=== PATIENT | male | born 1950 | race Caucasian/White ===

== ENCOUNTER 2019-09-10 16:36 | Emergency (ER) | payer MEDICARE ==
[2019-09-10 17:17] LABS: #Basophils 0.1 thou/uL (0.0-0.2); #Eosinphils 0.3 thou/uL (0.0-0.7); #Lymphocytes 3.1 thou/uL (1.20-3.40); #Monocytes 0.6 thou/uL (0.11-0.59); #Neutrophils 4.5 thou/uL (1.40-6.50); %Basophils 0.7 % (0.0-1.0); %Eosinophils 3.1 % (0.0-10.0); %Lymphocytes 36.7 % (21.0-51.0); %Monocytes 6.5 % (0.0-10.0); Hemoglobin 15.2 g/dL (14.0-18.0); Mean Corpuscular HGB CONC 34.7 g/dL (32.0-36.0); Mean Corpuscular Hemoglobin 32.2 pg (27.0-31.0); Mean Corpuscular Volume 92.9 fL (78.0-98.0); Platelet Count 225 thou/uL (130-400); RBC Distribution Width 11.2 % (11.5-14.5); White Blood Cell (WBC) Count 8.5 thou/uL (4.8-10.8)
[2019-09-10 17:35] LABS: ALT (SGPT) 11 U/L (8-55); AST (SGOT) 16 U/L (5-34); Albumin 4.5 g/dL (3.4-4.8); Alkaline Phosphatase 84 U/L (40-110); Anion Gap 13 mmol/L (10-20); BUN (Urea Nitrogen) 24 mg/dL (8.4-25.7); Bilirubin, Total 0.3 mg/dL (0.2-1.2); Calc. Creatinine Clearance 0 mL/min (70-130); Calcium 9.6 mg/dL (7.8-10.44); Carbon Dioxide 26 mmol/L (23-31); Chloride 105 mmol/L (98-107); Estimated GFR-MDRD 58; Globulin 2.6 g/dL (2.4-3.5); Glucose 102 mg/dL (80-115); Potassium 3.9 mmol/L (3.5-5.1); Protein, Total 7.1 g/dL (5.8-8.1); Sodium 140 mmol/L (136-145)
[2019-09-10] MEDS ORDERED: Ondansetron PF 4 MG/2 ML Vial ONE (17:44)
[2019-09-10] MEDS ORDERED: Morphine 4 MG/ML VIAL ONE ×2 (17:44→18:48)
[2019-09-10 18:14] LABS: Bacteria/HPF None Seen HPF (None Seen); Bilirubin Negative (Negative); Blood, Urine 1+ (Negative); Clarity Clear (Clear); Glucose, Urine (Dipstick) Normal (Negative); Leukocyte Negative Leu/uL (Negative); Nitrite Negative (Negative); Protein, Urine (Dipstick) Negative (Neg-Trace); Squamous Epithelial None Seen HPF (0-3); Urobilinogen Normal mg/dL (Less than 2); WBC/HPF 0-3 HPF (0-3)
--- NOTE | 2019-09-10 18:15 | CT ---
CT ABDOMEN NONCONTRAST CT PELVIS NONCONTRAST: (Urolithiasis protocol) DATE: 09/10/2019 HISTORY: 69-year-old male with right groin pain COMPARISON: None TECHNIQUE: IV injection of iodinated contrast media: None Oral contrast media: None FINDINGS: Other than for urolithiasis, the lack of IV and oral contrast limits the evaluation. 3 x 3 x 2 mm calculus at right UVJ. Mild right hydroureteronephrosis. Mild fat stranding representing edema at right renal hilum. Large number of small calculi throughout bilateral renal upper, mid, and lower pole calyces, ranging from 1 to 3 mm in size each. Normal appendix. Within the limitations of noncontrast scan, no major pathology identified involving pancreas, adrenal s, spleen, liver. Enlarged prostate gland. Dilated veins around seminal vesicles bilaterally. No signs of colonic diverticulitis, ascites, small bowel dilation, or pneumoperitoneum. Calcified tiny gallstones within contracted gallbladder. IMPRESSION: 1. Positive for mild right-sided obstructive uropathy: 3 mm calculus at right ureterovesical junction causing mild right hydroureteronephrosis. 2. Bilateral nephrolithiasis: Large number of small and tiny bilateral renal calculi. 3. Cholelithiasis.
[2019-09-10] MEDS ORDERED: Ketorolac Tromethamine 30 MG/ML VIAL ONE (18:48)
== END 2019-09-10 19:38 | disposition home or self-care (01) ==
LOC: ERS 16:36
DX: N13.2 Hydronephrosis with renal and ureteral calculous obstruction (principal); E78.5 Hyperlipidemia, unspecified; E78.00 Pure hypercholesterolemia, unspecified; I10 Essential (primary) hypertension; Z79.82 Long term (current) use of aspirin; Z79.899 Other long term (current) drug therapy
CPT/HCPCS: 74176; 80053; 81003; 81015; 83690; 85025; 87086; 96361; 96374; 96375; 96376; J1885; J2270; J2405

== ENCOUNTER 2020-04-07 13:53 | Inpatient (IN) | payer MEDICARE, OTHER ==
--- NOTE | 2020-04-07 14:22 | RAD ---
EXAM: Single view of the chest HISTORY: Chest pain COMPARISON: None FINDINGS: Single view of the chest shows a normal sized cardiomediastinal silhouette. There is no pam dence of consolidation, mass, or pleural effusion. No acute osseous abnormality. IMPRESSION: No evidence of acute cardiopulmonary disease
[2020-04-07 14:44] LABS: #Eosinphils 0.1 thou/uL (0.0-0.7); #Lymphocytes 1.3 thou/uL (1.20-3.40); #Monocytes 0.6 thou/uL (0.11-0.59); #Neutrophils 8.2 thou/uL (1.40-6.50); %Basophils 0.4 % (0.0-1.0); %Eosinophils 1.2 % (0.0-10.0); %Lymphocytes 12.9 % (21.0-51.0); %Monocytes 5.6 % (0.0-10.0); %Neutrophils 79.9 % (42.0-75.0); Mean Corpuscular HGB CONC 33.5 g/dL (32.0-36.0); Mean Corpuscular Hemoglobin 31.5 pg (27.0-31.0); Mean Platelet Volume 8.6 fL (7.4-10.4); Platelet Count 162 thou/uL (130-400); RBC Distribution Width 11.7 % (11.5-14.5); Red Blood Cell (RBC) Count 4.75 mill/uL (4.70-6.10); White Blood Cell (WBC) Count 10.3 thou/uL (4.8-10.8)
[2020-04-07 14:59] LABS: ALT (SGPT) 10 U/L (8-55); AST (SGOT) 15 U/L (5-34); Albumin 4.2 g/dL (3.4-4.8); Alkaline Phosphatase 74 U/L (40-110); Anion Gap 10 mmol/L (10-20); BUN (Urea Nitrogen) 23 mg/dL (8.4-25.7); Bilirubin, Total 0.6 mg/dL (0.2-1.2); Calc. Creatinine Clearance 0 mL/min (70-130); Calcium 9.2 mg/dL (7.8-10.44); Carbon Dioxide 28 mmol/L (23-31); Chloride 105 mmol/L (98-107); Estimated GFR-MDRD 75; Globulin 2.5 g/dL (2.4-3.5); Glucose 88 mg/dL (80-115); Potassium 4.2 mmol/L (3.5-5.1); Protein, Total 6.7 g/dL (5.8-8.1); Sodium 139 mmol/L (136-145)
--- NOTE | 2020-04-07 15:11 | CT ---
CT HEAD WITHOUT IV CONTRAST COMPARISON: None HISTORY: Headache and right leg numbness which started a week ago. History of fall and hit head on January 20 o f this year. TECHNIQUE: Axial CT imaging at 5 mm intervals from vertex through skull base without contrast FINDINGS: There is a large mixed density left subdural collection which extends from the level of the anterior inferior left frontal lobe to the vertex. Greatest transverse dimension is approximately 2.8 cm as measured above the level of the lateral ventricles. Findings are most compatible with a large left doss bdural hemorrhage. There is sulcal effacement involving the left cerebral hemisphere. There is effacement of the body of the left lateral ventricle and shift of the midline structures to the right measuring approximately 1.6 cm. There is no evidence of an acute cortical infarction. Skull base has a normal CT appearance. Minimal mucosal thickening is seen in a few ethmoidal air cells. The mastoid air cells are clear. There is a nondisplaced fracture involving the lateral left parietal bone which extends inferiorly to involve the more superior aspect of the squamosal portion of the left temporal bone. No overlying soft tissue swelling is appreciated. IMPRESSION: 1. Large mixed density left subdural hematoma with resultant sulcal effacement and mass effect includ ing shift of the midline structures to the right measuring 1.6 cm. 2. Nondisplaced fracture involving the left parietal bone extending into the squamosal portion of the left temporal bone. 3. Above findings were discussed with Brian Kim, nurse practitioner in the emergency department on 04/07/2020 at 1504 hours.
[2020-04-07] MEDS ORDERED: diphenhydrAMINE 50 MG/ML VIAL ONE (15:29)
[2020-04-07] MEDS ORDERED: Metoclopramide HCl 10 MG/2 ML VIAL ONE (15:29)
--- NOTE | 2020-04-07 15:46 | RAD ---
Exam: Lumbar spine 2 views HISTORY: Right leg numbness FINDINGS: 5 lumbar type vertebra. Lumbar spine vertebral body height is maintained. No fracture. Mild loss of disc space height and osteophyte formation at L2-L3 and L3-L4. No spondylolisthesis or spondylolysis. Visualized sacrum and bony pelvis are intact IMPRESSION: Mild degenerative changes. MRI if clinically warranted.
[2020-04-07] MEDS ORDERED: Ondansetron PF 4 MG/2 ML Vial IVP PRN (15:47)
[2020-04-07] MEDS ORDERED: Acetaminophen 325 MG TAB PO PRN (15:47)
[2020-04-07] MEDS ORDERED: Labetalol HCl 100 MG/20 ML VIAL SLOW IVP PRN (15:47)
[2020-04-07] MEDS ORDERED: Morphine 2 MG/ML SYRINGE SLOW IVP PRN (15:51)
[2020-04-07 16:01] LABS: CK (CPK) 36 U/L (30-200); Lipase 10 U/L (8-78)
--- NOTE | 2020-04-07 16:27 | HP ---
HISTORY OF PRESENT ILLNESS: The patient is a 69-year-old male with history of hypertension, hyperlipidemia, valvular heart disease, who presented to the emergency room for some numbness and weakness in the right lower extremity. He reports this began gradually over the past week. He initially noticed it during his drive home from [place] where he lives 6 months out of the year. The patient does admit to a fall early January, hitting his head, but was not evaluated with intracranial imaging at that time. He does take 81 mg of aspirin daily. Noncontrast CT head was done on arrival, which is notable for a large left-sided mixed density subdural hematoma with some mass effect and left to right shift. L-spine x-rays are unremarkable. Chest x-ray is also unremarkable. PAST MEDICAL HISTORY: Hypertension, hyperlipidemia, valvular heart disease. PAST SURGICAL HISTORY: Right meniscus, hernia repair. SOCIAL HISTORY: The patient drinks socially. He does not use drugs. He lives at home with his spending 6 months out of the year in [place] and 6 months out of the year in [facility]. REVIEW OF SYSTEMS: Per HPI. PHYSICAL EXAMINATION: VITAL SIGNS: Stable. GENERAL: Awake, alert, in no acute distress. HEENT: Head, normocephalic and atraumatic. Eyes, PERRLA. Extraocular movements intact. ENT, pink moist. He has normal voice. No facial droop is appreciated. NECK: Nontender. Free active range of motion. No meningismus. No nuchal rigidity. CARDIAC: Regular rate and rhythm. PULMONARY: Symmetric chest expansion. No evidence of dyspnea. MUSCULOSKELETAL: No obvious deformities. Symmetric pulses. He has some subtle weakness in the right proximal leg. Sensation is intact to light touch. NEURO: A and O x4. GCS of 15. He has some subtle right lower extremity weakness to the proximal leg. ASSESSMENT AND PLAN: The patient has a new right lower extremity weakness and sensation changes and a large left-sided mixed density subdural hematoma found on noncontrast CT. I will admit him to the [facility] for close neuro monitoring. I will make him n.p.o. in anticipation for likely need for samson hole intervention in the near future. We will send a rapid COVID test and I will ask hospitalist team to follow along for medical management. I have discussed with Dr. Hickman, who is in agreement. Job ID: [id number] [facility]
[2020-04-07 16:29] LABS: Bilirubin Negative (Negative); Blood, Urine Negative (Negative); Clarity Clear (Clear); Glucose, Urine (Dipstick) Normal (Negative); Ketone, Urine Negative (Negative); Leukocyte Negative Leu/uL (Negative); Nitrite Negative (Negative); Protein, Urine (Dipstick) Negative (Neg-Trace); Specific Gravity, Urine 1.011 (1.002-1.036); Urobilinogen Normal mg/dL (Less than 2)
[2020-04-07 17:40] LABS: Prothrombin Time 13.3 sec (12.0-14.7)
--- NOTE | 2020-04-07 20:34 | CON ---
DATE OF CONSULTATION: 04/07/2020 REASON FOR CONSULT: Medical management. CONSULTING PHYSICIAN: Irvin Guardado MD. HISTORY AND COURSE: This is a 69-year-old male with a past medical history of hypothyroidism, hypertension, and hyperlipidemia, who presented to the ER today with a week-long history of right-sided leg weakness and right-sided arm weakness. He reports that these symptoms began approximately 1 week ago and have progressed slightly since that time. He states that he noted inability to drive, and this prompted him to come into the ER. He currently denies any change in sensation in his right side. Of note, 2 months ago, he had a syncopal episode at which time he passed out, hit the back of his head, and chipped multiple teeth. He was seen in the ER at that time, but no scans were performed on his head. Currently, he reports headaches, but denies change in his vision, nausea, vomiting, diarrhea, constipation, upset stomach, abdominal pain, and left-sided weakness. PAST MEDICAL HISTORY: Hypothyroidism, hypertension, and hyperlipidemia. SOCIAL HISTORY: Denies tobacco or drug use. Socially drinks. FAMILY HISTORY: Noncontributory. ALLERGIES: NO KNOWN DRUG ALLERGIES. REVIEW OF SYSTEMS: Per HPI. CURRENT MEDICATION: List includes; 1. Amlodipine 2.5 mg p.o. daily. 2. Losartan 50 mg p.o. daily. 3. Levothyroxine 50 mcg p.o. daily. 4. Simvastatin 40 mg p.o. at bedtime. 5. Aspirin 81 mg p.o. daily. PHYSICAL EXAMINATION: VITAL SIGNS: Blood pressure 148/71, pulse 54, respirations 21, temperature 98.6, and O2 saturation 98% on room air. Weight 72 kg. GENERAL: In no acute distress. HEENT: The patient is atraumatic and normocephalic. No lesions on his head. Moist mucous membranes. CARDIOVASCULAR: Regular rate and rhythm. No murmurs. LUNGS: Clear to auscultation bilaterally. ABDOMEN: Soft and nontender. Bowel sounds are present. EXTREMITIES: No edema. Pulses are present. NEUROLOGIC: Cranial nerves 2 through 12 are grossly intact. Cerebellar testing of the upper and lower right extremities are sluggish compared to the left. Strength in the upper extremity on the right is approximately 4/5 and on the left is 5/5. Extremity strength on the lower right extremity is 4/5 and 5/5 on the left. Hence exam is negative. LABORATORY DATA: WBC 10.3, hemoglobin 15.0, hematocrit 44.6, and platelets 162. PT 13.3, INR 1.0, and APTT 40.0. Sodium 139, potassium 4.2, chloride 105, bicarb 28, BUN 23, creatinine 0.99, glucose 88, AST 15, ALT 10, albumin 4.2, and troponin less than 0.01. CPK 36 and lipase 10. UA is grossly negative. IMAGING DATA: 1. Lumbar spine 2 views shows mild degenerative changes. CT of the brain without contrast shows large mixed density left subdural hematoma with resultant sulci effacement and mass effect including shift of the midline sutures to the right measuring 1.6 cm, nondisplaced fracture involving the left parietal bone extending to the squamosal portion of the temporal bone. 2. Chest x-ray, portable, shows no acute cardiopulmonary disease. ASSESSMENT AND PLAN: 1. Subdural hematoma. The patient will be moved to the [facility] for neuro checks. Neurosurgery is admitting and managing this problem. The patient will remain n.p.o. pending possible samson hole. 2. Hypertension. We will continue the patient's home medications of amlodipine and losartan, labetalol p.r.n. on board for systolic greater than 160. 3. Hypothyroidism. Continue levothyroxine, and we will assess TSH. 4. Hyperlipidemia. Continue atorvastatin. We will hold his aspirin for now. 5. Fluids NS 100 mL/h until the patient tolerate p.o. 6. Prophylaxis. None. 7. Family: at bedside, and I discussed the plan with her. 8. Disposition: We will discharge in 2 to 3 days pending Neurosurgery recommendations. The patient will likely need physical therapy going forward. 9. PCP: The patient plans to follow up this coming with Dr. Esparza. Job ID: [id number]
[2020-04-07] MEDS ORDERED: Simvastatin 40 MG TAB PO SCH (21:00)
[2020-04-07] MEDS: Simvastatin 20 MG TAB PO SCH (21:26)
[2020-04-07] MEDS: Sodium Chloride 0.9% 1,000 ML IV SCH (21:27)
[2020-04-07] MEDS ORDERED: Morphine 2 MG/ML VIAL SLOW IVP PRN (22:30)
[2020-04-07 23:41] VITALS: BMI 20.8
[2020-04-08] MEDS: Sodium Chloride 0.9% 1,000 ML IV SCH (04:13)
--- NOTE | 2020-04-08 06:14 | PDOC.FM ---
- Subjective Subjective: Pt is doing well after samson hole procedure. He has no complaints. He is tolerating PO intake. Is unsure if his deficits are unchanged. He has no questions or concerns. - Objective Vital Signs & Weight: Vital Signs (12 hours) Pulse Ox 04/07/20 23:46 97 Weight Weight 71.668 kg Most Recent Monitor Data Heart Rate from ECG 54 NIBP 120/62 NIBP BP-Mean 81 Respiration from ECG 16 SpO2 99 I&O: 04/06/20 04/07/20 04/08/20 06:59 06:59 06:59 Output Total 400 Balance -400 Result Diagrams: 04/07/20 14:27 04/07/20 14:27 Phys Exam - Physical Examination Constitutional: NAD HEENT: PERRLA, moist MMs Neck: no JVD, full ROM Respiratory: no wheezing, clear to auscultation bilateral Cardiovascular: RRR, no significant murmur Gastrointestinal: soft, non-tender, positive bowel sounds Musculoskeletal: no edema, pulses present Neurological: moves all 4 limbs Psychiatric: normal affect, A&O x 3 Skin: no rash, cap refill <2 seconds Dx/Plan (1) Subdural hematoma Code(s): S06.5X9A - TRAUM SUBDR HEM W LOC OF UNSP DURATION, INIT Status: Acute (2) Hypertension Code(s): I10 - ESSENTIAL (PRIMARY) HYPERTENSION Status: Acute (3) Hyperlipidemia Code(s): E78.5 - HYPERLIPIDEMIA, UNSPECIFIED Status: Acute - Plan Plan: Pt is a 69 yo male here for a subdural hematoma with midline shift: # Subdural Hematoma - management per neurosurgery - BP < 160 - continue home BP meds, prn labetolol - neuro checks - pt is in recovery after samson hole # HTN - continued home amlodipine, losartan - prn labetolol # HLD - continue home medications - hold asa # Hypothyroidism - continue home medications # Will cancel pt's appt for 04/[address] Esparza Diet: NPO per neurosurgery Fluids: NS 100 mls/hr VTE: SCD's Dispo: monitor in CCU
[2020-04-08] MEDS: Levothyroxine Sodium 50 MCG TAB PO SCH (06:24)
--- NOTE | 2020-04-08 06:48 | PRG ---
DATE OF SERVICE: 04/08/2020 SUBJECTIVE: The patient was seen and examined. I agree with Ann Marie Oconnor's evaluation on 04/07/2020. The patient is a 69-year-old male, who presented with complaints of one week of right-sided hemiparesis. On exam, he has mild weakness in the right leg, but is otherwise neurologically preserved. He reports he had a fall two months ago, which was quite violent. He has been on one aspirin per day. CT scan reveals a large mixed density, largely chronic subdural hematoma on the left. IMPRESSION AND PLAN: The patient will require drainage of his subdural hematoma. We discussed the indications, risks, benefits, and alternatives of the samson holes for evacuation of the subdural hematoma. He expressed understanding and wished to proceed. All of his questions were answered. Job ID: [id number]
[2020-04-08 07:38] LABS: SARS-CoV-2 NAA Rapid Test Not Detected (NotDetected)
[2020-04-08] MEDS ORDERED: Lidocaine 0.5%/Epinephrine 1:200,000 50 ml Vial ONE (08:29)
[2020-04-08] MEDS ORDERED: Fentanyl 250 MCG/5 ML VIAL ONE (08:31)
[2020-04-08] MEDS ORDERED: CEFAZOLIN 2 GM in Premix Bag 1 BAG IVPB SCH (09:00)
[2020-04-08] MEDS ORDERED: SUGAMMADEX SODIUM 200 MG/2 ML VIAL ONE (09:19)
--- NOTE | 2020-04-08 09:53 | OP ---
DATE OF PROCEDURE: 04/08/2020 PROCEDURE PERFORMED: Left samson holes for evacuation of subdural hematoma. DESCRIPTION OF PROCEDURE: The patient was brought to the operating room and intubated. He was positioned supine with the head in modest flexion on a gel-filled donut. Two incisions were made in the left mid pupillary line and the skull was perforated. The dura was coagulated and divided and jenny subdural hematoma was aspirated under pressure. The subdural space was irrigated until clear and a drain was left in the subdural space. The wound was then extensively irrigated and closed in anatomic layers. Job ID: [id number]
[2020-04-08] MEDS ORDERED: Dexamethasone 20 MG/5 ML VIAL ONE (09:55)
[2020-04-08] MEDS ORDERED: Rocuronium Bromide 10 MG/ML (10ML VIAL) ONE (09:55)
[2020-04-08] MEDS ORDERED: Glycopyrrolate 0.2 MG/ML 5 ML SYRINGE ONE (09:55)
[2020-04-08] MEDS ORDERED: Lidocaine 1% PF 5 ML VIAL ONE (09:55)
[2020-04-08] MEDS ORDERED: Ondansetron PF 4 MG/2 ML Vial ONE (09:55)
[2020-04-08] MEDS ORDERED: PROPOFOL 200 MG/20 ML VIAL ONE (09:55)
[2020-04-08] MEDS ORDERED: HYDROmorphone 2 MG/ML VIAL SLOW IVP PRN (09:58)
[2020-04-08] MEDS ORDERED: Ondansetron HCl/PF 4 MG/2 ML Vial IVP PRN (09:58)
[2020-04-08] MEDS ORDERED: Promethazine HCl 25 MG/ML VIAL IM PRN (09:58)
[2020-04-08] MEDS ORDERED: Promethazine HCl 25 MG/ML VIAL SLOW IVP PRN (09:58)
[2020-04-08] MEDS: Amlodipine 5 MG TAB PO SCH (10:00)
[2020-04-08] MEDS: Losartan 25 MG TAB PO SCH (10:00)
[2020-04-08] MEDS ORDERED: Fentanyl 100 MCG/2 ML VIAL ONE ×2 (10:25→11:08)
[2020-04-08] MEDS: CEFAZOLIN 2 GM in Premix Bag 1 BAG IVPB SCH (17:30)
[2020-04-08] MEDS: Famotidine 20 MG TAB PO SCH (19:53)
[2020-04-08] MEDS: Simvastatin 20 MG TAB PO SCH (21:43)
[2020-04-09] MEDS: CEFAZOLIN 2 GM in Premix Bag 1 BAG IVPB SCH ×3 (01:32→17:13)
[2020-04-09] MEDS ORDERED: Sodium Chloride 0.9% 10 ML ONE (04:04)
[2020-04-09] MEDS: Sodium Chloride 0.9% 1,000 ML IV SCH ×2 (05:22→05:40)
[2020-04-09] MEDS: Levothyroxine Sodium 50 MCG TAB PO SCH (06:15)
--- NOTE | 2020-04-09 06:16 | PDOC.FM ---
- Subjective Subjective: Pt reports he had a fall in January 2020. He remembers becoming warm and flushed before falling from standing. He hit his at this time. Subsequently, he was seen by cardiology. Pt states he had a negative cardiac workup including echocardiogram, nuclear stress test. He has not had another episode. At the time he had been outside, drinking water, and conversating with friends. - Objective Vital Signs & Weight: Weight Weight 71.668 kg Most Recent Monitor Data Heart Rate from ECG 60 NIBP 117/58 NIBP BP-Mean 77 Respiration from ECG 16 SpO2 100 I&O: 04/07/20 04/08/20 04/09/20 06:59 06:59 06:59 Intake Total 1250 Output Total 700 820 Balance -700 430 Result Diagrams: 04/09/20 08:08 04/09/20 08:08 Phys Exam - Physical Examination Constitutional: NAD HEENT: PERRLA, moist MMs Drain tube in place Respiratory: no wheezing, clear to auscultation bilateral Cardiovascular: RRR, no significant murmur Gastrointestinal: soft, non-tender Musculoskeletal: no edema, pulses present Dx/Plan (1) Subdural hematoma Code(s): S06.5X9A - TRAUM SUBDR HEM W LOC OF UNSP DURATION, INIT Status: Acute (2) Hypertension Code(s): I10 - ESSENTIAL (PRIMARY) HYPERTENSION Status: Acute (3) Hyperlipidemia Code(s): E78.5 - HYPERLIPIDEMIA, UNSPECIFIED Status: Acute - Plan Plan: Pt is a 69 yo male here for a subdural hematoma with midline shift: # Subdural Hematoma - management per neurosurgery - BP < 160 - continue home BP meds, prn labetolol - neuro checks - pt is in recovery after samson hole # HTN - continued home amlodipine, losartan - prn labetolol # HLD - continue home medications - hold asa # Hypothyroidism - continue home medications # Will cancel pt's appt for 04/[address] Esparza Diet: HH Fluids: PO VTE: SCD's Dispo: monitor in CCU
--- NOTE | 2020-04-09 06:51 | OP ---
DATE OF PROCEDURE: 04/09/2020 SUBJECTIVE: Mr. Pereira is postoperative day 1 from evacuation of subdural hematoma. He is alert and appropriate. He has no focal deficit. He is feeling much better. The drain output has been modest. CT scan shows substantial improvement in the mass effect, but still meaningful amount of air and fluid in the subdural space. I am recommending continuing the drain for one more day. We will continue to mobilize. Job ID: [id number]
--- NOTE | 2020-04-09 08:14 | CT ---
PRELIMINARY REPORT/[facility]/EMERGENCY AFTER HOURS PROCEDURE EXAM: CT Head Without Intravenous Contrast. CLINICAL HISTORY: S/p SDH evacuation TECHNIQUE: Axial computed tomography images of the head/brain without intravenous contrast. COMPARISON: April 07, 2020 FINDINGS: Postop evacuation of a large subdural hematoma on the left. Subdural air in the subdural drain are i n place with significant decrease in mass-effect and midline shift in the interval. There is a persistent collection with some residual mass-effect and midline shift noted however. No new abnormalities in the normal no acute intraparenchymal abnormalities identified. IMPRESSION: Typical postop brain status post subdural hematoma evacuation with improving but persistent mass-effe ct and midline shift. ELECTRONICALLY SIGNED BY: Dominick Lazo MD Apr 09, 2020 4:47:51 AM CDT This report is intended for review by the ordering physician only, in accordance of law. If you recei ve this report in error, please call [facility] at [phone]. FINAL REPORT Emergent after hours noncontrast CT head HISTORY: Post subdural hemorrhage evacuation. COMPARISON: 04/07/2020. IMPRESSION: Interval postoperative changes with two separate samson holes present within the left frontal and left parietal bones with subdural drainage catheter entering the more posteriorly located samson hole. There has been interval decrease in the left subdural hemorrhage. There is pneumocephalus and persist ent left subdural hemorrhage present. Greatest transverse dimension of the subdural hemorrhage on prior study was 2.8 cm with greatest dimension on today's exam of 1.7 cm. There has been improvement in mass effect and midline shift when compared to prior exam. Shift of midline structures measures 8.0 mm on today's exam and previously measured 1.6 cm. Findings are in agreement with pulmonary report by [facility]. Transcribed Date/Time: 04/09/2020 8:27 AM
--- NOTE | 2020-04-09 08:18 | CON ---
DATE OF CONSULTATION: 04/09/2020 REASON FOR CONSULTATION: The patient is in the ICU. HISTORY OF PRESENT ILLNESS: This is a 69-year-old male, who presented to the ER with right-sided leg and right arm weakness with symptoms starting about a week ago. He was found to have a left-sided subdural hematoma. He had a samson hole placed yesterday and is actually doing much better. He has been kept in the ICU with a drain in place. He has no acute complaints at this time. He says he initially fell on his head about two months ago in [place]. He did not really get a complete medical evaluation after that and had actually been doing okay until about 2 weeks ago. PAST MEDICAL HISTORY: 1. Hypothyroidism. 2. Hypertension. 3. Hyperlipidemia. PAST SURGICAL HISTORY: None prior to yesterday. SOCIAL HISTORY: Nonsmoker. Very occasionally drinks alcohol. MEDICATIONS: 1. Amlodipine. 2. Losartan. 3. Levothyroxine. 4. Simvastatin. 5. Aspirin. ALLERGIES: NONE. REVIEW OF SYSTEMS: Twelve-point review of system was negative. PHYSICAL EXAMINATION: VITAL SIGNS: Heart rate in the 40s, blood pressure 125/62, respiratory rate 17, and O2 saturation 100%. GENERAL: He is awake, alert, no distress. HEENT: Pupils, 2 mm, reactive. Oropharynx is clear. He has a drain coming out of the left occipital region of the skull. NECK: No adenopathy or JVD. CARDIAC: S1 and S2. Bradycardic. ABDOMEN: Soft and nontender. LUNGS: Clear. EXTREMITIES: No clubbing, cyanosis, or edema. NEUROLOGIC: Nonfocal throughout. LABORATORY DATA: White blood cell count 10, hematocrit 44, platelet count 162. INR 1.0. Sodium 139, potassium 4.2, BUN 23, creatinine 0.9, glucose 88. His COVID test was negative. Brain CT shows a drain in the left lateral aspect of the skull. ASSESSMENT: 1. Subdural hematoma, now status post drainage. 2. Bradycardia. RECOMMENDATIONS: 1. Avoid beta-blockers. 2. Probably able to go back to the floor soon. Pulmonary will be happy to follow while he is in the ICU. Job ID: [id number]
[2020-04-09 08:27] LABS: #Eosinphils 0.2 thou/uL (0.0-0.7); #Lymphocytes 1.9 thou/uL (1.20-3.40); #Monocytes 0.8 thou/uL (0.11-0.59); %Basophils 0.5 % (0.0-1.0); %Eosinophils 1.7 % (0.0-10.0); %Lymphocytes 21.8 % (21.0-51.0); %Monocytes 8.4 % (0.0-10.0); %Neutrophils 67.5 % (42.0-75.0); Hemoglobin 13.8 g/dL (14.0-18.0); Mean Corpuscular HGB CONC 34.8 g/dL (32.0-36.0); Mean Corpuscular Hemoglobin 33.2 pg (27.0-31.0); Mean Corpuscular Volume 95.3 fL (78.0-98.0); Mean Platelet Volume 7.4 fL (7.4-10.4); Platelet Count 193 thou/uL (130-400); RBC Distribution Width 11.6 % (11.5-14.5); Red Blood Cell (RBC) Count 4.15 mill/uL (4.70-6.10); White Blood Cell (WBC) Count 8.9 thou/uL (4.8-10.8)
[2020-04-09 08:49] LABS: Anion Gap 12 mmol/L (10-20); BUN (Urea Nitrogen) 18 mg/dL (8.4-25.7); Calc. Creatinine Clearance 66 mL/min (70-130); Calcium 8.6 mg/dL (7.8-10.44); Carbon Dioxide 25 mmol/L (23-31); Chloride 105 mmol/L (98-107); Estimated GFR-MDRD 68; Glucose 142 mg/dL (80-115); Sodium 138 mmol/L (136-145)
[2020-04-09] MEDS: Famotidine 20 MG TAB PO SCH ×2 (08:52→21:09)
[2020-04-09] MEDS: Losartan 25 MG TAB PO SCH (08:52)
[2020-04-09] MEDS: Amlodipine 5 MG TAB PO SCH (13:08)
[2020-04-09] MEDS: Simvastatin 20 MG TAB PO SCH (21:08)
[2020-04-10] MEDS: CEFAZOLIN 2 GM in Premix Bag 1 BAG IVPB SCH ×2 (02:04→10:00)
[2020-04-10] MEDS: Levothyroxine Sodium 50 MCG TAB PO SCH (06:11)
--- NOTE | 2020-04-10 06:11 | PDOC.FM ---
- Subjective Subjective: Pt is doing well today. He did have an episode of hypotension after rising to stand and HR remained bradycardic. He is tolerating PO intake. He states his recent cardiac work up was negative. His EKG was Sinus Bianca. He has not other symptoms. He had his drain removed from samson hole by NS. - Objective Vital Signs & Weight: Vital Signs (12 hours) Temp Pulse Ox 04/10/20 04:00 98.5 F 04/10/20 00:00 99.0 F 04/09/20 20:00 98.3 F 98 Weight Weight 71.668 kg Most Recent Monitor Data Heart Rate from ECG 55 NIBP 110/58 NIBP BP-Mean 75 Respiration from ECG 17 SpO2 98 I&O: 04/08/20 04/09/20 04/10/20 06:59 06:59 06:59 Intake Total 1250 2065.9 Output Total 884 377 1554 Balance -700 430 -44.1 Result Diagrams: 04/09/20 08:08 04/09/20 08:08 Phys Exam - Physical Examination Constitutional: NAD HEENT: PERRLA, moist MMs Respiratory: no wheezing, clear to auscultation bilateral Cardiovascular: no significant murmur bradycardia Gastrointestinal: soft, non-tender Musculoskeletal: no edema, pulses present Neurological: non-focal, normal sensation Dx/Plan (1) Subdural hematoma Code(s): S06.5X9A - TRAUM SUBDR HEM W LOC OF UNSP DURATION, INIT Status: Acute (2) Hypertension Code(s): I10 - ESSENTIAL (PRIMARY) HYPERTENSION Status: Acute (3) Hyperlipidemia Code(s): E78.5 - HYPERLIPIDEMIA, UNSPECIFIED Status: Acute - Plan Plan: Pt is a 69 yo male here for a subdural hematoma with midline shift: # Subdural Hematoma - management per neurosurgery - BP < 160 - continue home BP meds, prn labetolol - neuro checks - pt is in recovery after samson hole # HTN - continued home amlodipine, losartan - prn labetolol # HLD - continue home medications - hold asa # Hypothyroidism - continue home medications # Symptomatic Bradycardia - will discuss with NS - EKG revealed sinus bianca - Possibly secondary to recent brain injury - Will have nursing staff walk patient # Will cancel pt's appt for 04/[address] Esparza Diet: HH Fluids: PO VTE: SCD's Dispo: monitor in CCU and transfer to floor per NS.
--- NOTE | 2020-04-10 07:52 | PRG ---
DATE OF SERVICE: 04/10/2020 SUBJECTIVE: The patient is doing well. He is up in a chair and no acute complaints. OBJECTIVE: VITAL SIGNS: Pulse 56, blood pressure 126/61, O2 saturation 99%, blood pressure 110/58. HEENT: Unremarkable except for the drain coming from the left side. NECK: No adenopathy or JVD. CHEST: Clear. CARDIAC: S1, S2. Regular. ABDOMEN: Soft. EXTREMITIES: No edema. LABORATORY DATA: Chemistry is normal except for blood glucose of 142. ASSESSMENT: 1. Status post evacuation of subdural hematoma-doing well. 2. Bradycardia. PLAN: The patient can be transferred to the floor when okayed by Neurosurgery, pulmonary critical care standpoint. Job ID: [id number]
[2020-04-10] MEDS: Famotidine 20 MG TAB PO SCH (07:53)
--- NOTE | 2020-04-10 08:16 | CON ---
DATE OF CONSULTATION: 04/10/2020 Mr. Pereira is doing extremely well and ambulated in the [facility] successfully yesterday and is tolerating a regular diet. I removed his drain without difficulty. Following removal of the drain, he had a brief vasovagal episode that has resolved. We will wait an hour or two to make sure that his hemodynamics remain stable. I anticipate he can be discharged today. I will see him back in 2 weeks with a CAT scan. Job ID: [id number]
[2020-04-10] MEDS: Losartan 25 MG TAB PO SCH (09:00)
[2020-04-10] MEDS: Amlodipine 5 MG TAB PO SCH (09:00)
[2020-04-10 09:29] VITALS: BP 113/65
[2020-04-10 14:56] VITALS: TEMP 98.5
--- NOTE | 2020-04-11 01:34 | DIS ---
DATE OF ADMISSION: 04/07/2020 DATE OF DISCHARGE: 04/10/2020 DISCHARGE DIAGNOSIS: Acute on chronic subdural hematoma. DISCHARGE SUMMARY: Patient is a 69-year-old male, who was seen in the ER on 04/07/2020 for some progressive right leg weakness. The patient had a mechanical fall in January where he suffered a head injury at that time. He was not evaluated with intracranial imaging. He did get a noncontrast CT head on arrival on 04/07/2020 in the ER, which was notable for a large mixed density subdural hematoma on the left. Patient was admitted for further evaluation and underwent samson hole drainage and subdural hematoma evacuation on 04/08/2020. Following the surgery, he was transitioned to the ICU where he remained stable neurologically. He was able to walk throughout the department without any difficulty. He was tolerating regular diet, and voiding appropriately. He had a subdural drain placed intraoperatively and this drain output trended downward over the next [address] showed significant reduction in prior subdural hematoma. The patient was doing well and discharged to home on 04/10/2020. Dr. Guardado discussed home care precautions and we will follow up with the patient in 2 weeks to reassess with CT imaging at that time. Job ID: [id number]
--- NOTE | 2020-04-13 11:59 | EKG ---
Test Reason : Blood Pressure : / mmHG Vent. Rate : 045 BPM Atrial Rate : 045 BPM P-R Int : 196 ms QRS Dur : 096 ms QT Int : 516 ms P-R-T Axes : 040 004 042 degrees QTc Int : 446 ms Marked sinus bradycardia Abnormal ECG When compared with ECG of 07-APR-2020 14:03, (Unconfirmed) Nonspecific T wave abnormality no longer evident in Lateral leads Confirmed by ISAIAS VERDUGO (2) on 04/13/2020 11:58:52 AM Referred By: ALISA Confirmed By:ISAIAS VERDUGO
--- NOTE | 2020-04-13 23:40 | PQF ---
CLINICAL DOCUMENTATION CLARIFICATION FORM: Dear : Ann Marie Oconnor Date / Time: 04/13/2020 7996 Please exercise your independent, professional judgment in responding to the clarification form. Clinical indicators are provided on the bottom of this form for your review Please check appropriate box(es): [ ] Cerebral edema / Vasogenic edema [X ] Compression of brain [ ] Other diagnosis [ ] Unable to determine Physician Signature: Date/Time: For continuity of documentation, please document condition throughout progress notes and discharge summary. Thank You. To be completed by CDI/Coding staff for physician review: Present Clinical Indicators - Signs / Symptoms / Labs Results and Location in Medical Record [X] Brain CT Imaging: Mixed density left subdural hematoma with resultant sulcal effacement and mass effect including shift of midline structures to the right measuring 1.[address] Florence 04/07 [X] BP 141/69, Pulse 63, Resp 24, Temp 97 Vital signs 04/07 [X] GCS of 15 H&P p1 04/07 Elvin PA-C [X] presented with some numbness and weakness in the right lower extremity H&P p1 04/07 Elvin PA-C [X] Subdural hematoma with midline shift Hpn p2 04/08 DR Whalen Present Risk Factors Results and Location in Medical Record [X] 69 year-old Male H&P p1 04/07 Elvin PA-C [X] Hypertension H&P p1 04/07 Elvin PA-C [X] HLD H&P p1 04/07 Elvin PA-C [X] Acute on Chronic Subdural hematoma Operative report Dr Guardado 04/08 Present Treatments Results and Location in Medical Record [X] IVF NS 1L AUG 27 [X] IV Cefazolin 2gm AUG 27 [X] Brain CT Imaging Dr Florence 04/07 [X] Neuro Consult Consult Dr Bain 04/07 [X] Foster hole with Evacuation of hematoma Operative report Dr Guardado 04/08 CDS/Housekeeper Manager Signature: Ronda Smith Phone #: [phone] Date/Time: 04/11/2020 2992 This is a permanent part of the Medical Record [facility]
== END 2020-04-10 14:45 | disposition home or self-care (01) | DRG 25 ==
LOC: ERS 13:53 → IMCU/EMU 15:51 → CCU 20:00
PROVIDERS: ADMIT Surgery; ATTEND Surgery
PROC: 00C43ZZ Extirpation of Matter from Intracranial Subdural Space, Percutaneous Approach (ICD-10-PCS; principal; 2020-04-08)
DX: I62.01 Nontraumatic acute subdural hemorrhage (principal); G93.5 Compression of brain; G81.91 Hemiplegia, unspecified affecting right dominant side; I62.03 Nontraumatic chronic subdural hemorrhage; Z20.828 Contact with and (suspected) exposure to other viral communicable diseases; E78.5 Hyperlipidemia, unspecified; E03.9 Hypothyroidism, unspecified; R00.1 Bradycardia, unspecified; I95.9 Hypotension, unspecified; R55 Syncope and collapse; Z79.899 Other long term (current) drug therapy; Z79.82 Long term (current) use of aspirin; Z79.890 Hormone replacement therapy
CPT/HCPCS: 36415; 36416; 70450; 71045; 72100; 80048; 80053; 81003; 82550; 83690; 84443; 84484; 85025; 85610; 85730; 87635; 93005; 93010; 96365; 96366; 96375; J0690; J1100; J1200; J2001; J2270; J2405; J2704; J2765; J3010; U0002; U0003

== ENCOUNTER 2020-04-23 15:24 | Outpatient (CLI) | payer MEDICARE ==
--- NOTE | 2020-04-23 16:37 | CT ---
CT BRAIN NONCONTRAST: DATE: 04/23/20 at 3:44 p.m. HISTORY: 70-year-old male follow-up subdural hematoma status post surgery. COMPARISON: 04/09/20. FINDINGS: Again noted are the left frontal and left parietal upper samson holes. There has been interval removal of the previously demonstrated left subdural drainage catheter. The amount of subdural gas has decre ased since the previous CT, but a significant portion remains. This includes a group of multifocal sm all bubbles of gas at the vertex near the parietal samson hole, as well as a single more confluent smal l left anterior frontal bubble of gas. The hyperdense, acute component of the left subdural hematoma, has now resolved. Currently, the subdu ral hematoma has attenuation that is intermediate between that of CSF and brain parenchyma. There are small irregular curvilinear strands of intermediate density within the subdural hematoma which may o r may not represent subacute blood. The comparison of the size of the subdural hematoma between the c urrent CT and the previous is somewhat difficult because the previous CT slices were angled, while th e current ones are not angled. In the upper portion of the head, the transverse diameter and subdural hematoma is currently approximately 2.1 cm. This measures slightly greater than the previous CT, but it is uncertain whether this represent actual increase in volume or not. The frontoparietal subdural hematoma continues to extrinsically compress the left cerebral hemisphere, and continues to cause le ft to right midline shift of the septum pellucidum by 8 mm. There is still distortion of the left lat eral ventricle, especially the frontal horn. There is no acute new intra-axial hemorrhage. No obstruc tive hydrocephalus. IMPRESSION: 1. Mixed aged subacute and chronic left subdural hematoma with mass effect upon the left cerebral hem isphere. 2. It is difficult to determine the change or stability of the size of subdural hematoma after remova l of the surgical drain, because of technical differences between the 2 CT scans. 3. The degree of moderate mass effect on the left cerebral hemisphere is roughly similar to 04/09/20. 4. Continued follow-up is strongly recommended. POS: [facility]
== END 2020-04-23 15:25 | disposition home or self-care (01) ==
LOC: BICCT 15:24
PROVIDERS: ATTEND Neurological Surgery
DX: I62.03 Nontraumatic chronic subdural hemorrhage (principal)
CPT/HCPCS: 70450

== ENCOUNTER 2020-04-28 10:39 | Emergency (ER) | payer MEDICARE ==
[2020-04-28] MEDS ORDERED: Acetaminophen 500 MG TAB ONE (11:39)
[2020-04-28 11:47] LABS: #Eosinphils 0.1 thou/uL (0.0-0.7); #Lymphocytes 1.5 thou/uL (1.20-3.40); #Monocytes 0.7 thou/uL (0.11-0.59); #Neutrophils 5.8 thou/uL (1.40-6.50); %Basophils 0.5 % (0.0-1.0); %Eosinophils 1.5 % (0.0-10.0); %Lymphocytes 18.5 % (21.0-51.0); %Monocytes 8.5 % (0.0-10.0); %Neutrophils 71.1 % (42.0-75.0); Hemoglobin 14.1 g/dL (14.0-18.0); Mean Corpuscular HGB CONC 34.9 g/dL (32.0-36.0); Mean Corpuscular Hemoglobin 33.2 pg (27.0-31.0); Mean Corpuscular Volume 95.1 fL (78.0-98.0); Mean Platelet Volume 7.2 fL (7.4-10.4); Platelet Count 208 thou/uL (130-400); RBC Distribution Width 11.3 % (11.5-14.5); Red Blood Cell (RBC) Count 4.25 mill/uL (4.70-6.10); White Blood Cell (WBC) Count 8.1 thou/uL (4.8-10.8)
[2020-04-28 11:54] LABS: PTT 44.8 sec (22.9-36.1); Prothrombin Time 13.7 sec (12.0-14.7)
--- NOTE | 2020-04-28 11:58 | CT ---
CT BRAIN NONCONTRAST: DATE: 04/28/2020 HISTORY: 70-year-old male follow-up subdural hematoma COMPARISON: 04/23/2020 FINDINGS: Again noted is the mixed age left frontoparietal subdural hematoma with lower attenuation, more chron ic appearing components, and small regions of higher attenuation suggestive of more recent, subacute components of hemorrhage. The transverse dimension of the subdural hematoma is approximately 2.2 cm today. The degree of left to right midline shift of the septum pellucidum is approximately 8 mm today. These are similar to, perhaps minimally larger, than on 04/23/2020. The extra axial gas [place] s decreased. There is no new hemorrhage. IMPRESSION: Mixed age left supratentorial subdural hematoma is either unchanged or minimally larger than on 2019. Recommend continued serial follow-up.
[2020-04-28 12:14] LABS: ALT (SGPT) 9 U/L (8-55); AST (SGOT) 12 U/L (5-34); Albumin 3.9 g/dL (3.4-4.8); Alkaline Phosphatase 79 U/L (40-110); Anion Gap 12 mmol/L (10-20); BUN (Urea Nitrogen) 22 mg/dL (8.4-25.7); Bilirubin, Total 0.7 mg/dL (0.2-1.2); CK (CPK) 25 U/L (30-200); Calc. Creatinine Clearance 0 mL/min (70-130); Calcium 9.2 mg/dL (7.8-10.44); Carbon Dioxide 27 mmol/L (23-31); Chloride 105 mmol/L (98-107); Estimated GFR-MDRD 64; Globulin 2.5 g/dL (2.4-3.5); Glucose 121 mg/dL (80-115); Potassium 4.1 mmol/L (3.5-5.1); Protein, Total 6.4 g/dL (5.8-8.1); Sodium 140 mmol/L (136-145)
[2020-04-29 15:37] LABS: SARS-CoV-2 MS2 Positive; SARS-CoV-2 N Gene Negative; SARS-CoV-2 S Gene Negative; SARS-CoV-2 by NAA Not Detected (NotDetected); SARS-CoV-2 orf1ab Negative
== END 2020-04-28 12:49 | disposition home or self-care (01) ==
LOC: ERS 10:39
DX: R51.9 Headache, unspecified (principal); Z20.828 Contact with and (suspected) exposure to other viral communicable diseases; E78.5 Hyperlipidemia, unspecified; E78.00 Pure hypercholesterolemia, unspecified; I10 Essential (primary) hypertension; Z79.899 Other long term (current) drug therapy
CPT/HCPCS: 70450; 80053; 82550; 83605; 84484; 85025; 85610; 85730; 87804 ×2; 93005; U0003; 36415; 87635

== ENCOUNTER 2020-05-06 14:45 | Outpatient (CLI) | payer MEDICARE ==
--- NOTE | 2020-05-06 15:54 | CT ---
CT head without contrast: Multiple axial tomograms obtained through the head without IV enhancement. INDICATIONS: Headache COMPARISON: 04/28/2020 FINDINGS: Left subdural hematoma again noted. This is predominantly low dense although there is mixed density w ithin this hematoma, similar to the prior exam. Hematoma does not appear significant changed in size. Midline shift of the septum pellucidum measured at 7 to 8 mm, similar to the prior exam. No other acute process or interval change. IMPRESSION: Mixed density left subdural hematoma does not appear significantly changed.. Midline shift at the sep jhon pellucidum not significant change.
== END 2020-05-06 14:46 | disposition home or self-care (01) ==
LOC: BICCT 14:45
PROVIDERS: ATTEND Neurological Surgery
DX: I62.03 Nontraumatic chronic subdural hemorrhage (principal)
CPT/HCPCS: 70450

== ENCOUNTER 2020-06-09 11:23 | Outpatient (CLI) | payer MEDICARE ==
--- NOTE | 2020-06-09 11:57 | CT ---
Head CT without contrast 06/09/2020: COMPARISON: 05/06/2020 HISTORY: Subdural hematoma, follow-up examination TECHNIQUE: Axial CT imaging at 5 mm intervals from vertex through skull base without contrast FINDINGS: Imaged paranasal sinuses and mastoid air cells are well-aerated. 2 left frontal calvarial b urr holes are present. Moderate diffuse cerebral volume loss. White matter hypodensity noted, evidence of small vessel disea se. The prior examination demonstrated a heterogeneous subdural hematoma on the left, most prominent at t he level the vertex. On this examination there is a suggestion of a very small residual primarily hypodense subdural fluid collection near the vertex on the left, best seen on axial image 25, measuri ng up to approximately 7 mm in greatest transverse dimension, previously measuring 2.9 cm in transverse dimension. No new intracranial hemorrhage is appreciated on this examination. There is hyperdensity anterior to the frontal lobe on the left medially measuring 3-4 mm in AP dimension, evidence of subdural blood, less conspicuous than on the prior examination as well. IMPRESSION: Residual small subdural hematoma on the left.
== END 2020-06-09 11:24 | disposition home or self-care (01) ==
LOC: BICCT 11:23
PROVIDERS: ATTEND Neurological Surgery
DX: I62.03 Nontraumatic chronic subdural hemorrhage (principal)
CPT/HCPCS: 70450

== ENCOUNTER 2022-04-29 08:30 | Outpatient (CLI) | payer OTHER | END 2022-04-29 08:31 | disposition home or self-care (01) | LOC: TBSIIMAG 08:30 | PROVIDERS: ATTEND Urology | DX: R97.20 Elevated prostate specific antigen [PSA] (principal); N40.2 Nodular prostate without lower urinary tract symptoms | CPT/HCPCS: 72197; 82565 ==

== ENCOUNTER 2022-07-02 10:40 | Outpatient (CLI) | payer OTHER ==
[2022-07-02 11:35] LABS: Hemoglobin 15.5 g/dL (13.5-17.5); Mean Corpuscular Hemoglobin 32.8 pg (27.0-33.0); Mean Corpuscular Volume 91.1 fl (81.2-95.1); Mean Platelet Volume 10.1 fl (7.4-10.4); Platelet Count 241 10x3/uL (150-450); RBC Distribution Width 12.4 % (11.5-14.5); Red Blood Cell (RBC) Count 4.72 10x6/uL (4.32-5.72); White Blood Cell (WBC) Count 7.1 10x3/uL (3.5-10.5)
[2022-07-02 11:55] LABS: PTT 35.6 sec (22.0-33.0); Prothrombin Time 10.7 sec (9.5-12.1)
[2022-07-02 12:12] LABS: Anion Gap 12 mmol/L (10-20); BUN (Urea Nitrogen) 23 mg/dL (8.4-25.7); Calc. Creatinine Clearance 0 mL/min (70-130); Calcium 9.7 mg/dL (7.8-10.44); Carbon Dioxide 28 mmol/L (23-31); Chloride 104 mmol/L (98-107); Estimated GFR 76; Glucose 85 mg/dL (83-110); Potassium 4.4 mmol/L (3.5-5.1); Sodium 140 mmol/L (136-145)
[2022-07-02 12:20] LABS: Bilirubin Neg (Negative); Blood, Urine Negative (Negative); Glucose, Urine (Dipstick) Normal (Negative); Ketone, Urine Negative (Negative); Leukocyte Negative (Negative); Nitrite Negative (Negative); Protein, Urine (Dipstick) Negative (Neg-Trace); Urobilinogen Normal mg/dL (Less than 2)
[2022-07-02 12:21] LABS: Clarity Clear (Clear)
[2022-07-02 13:07] LABS: Bacteria/HPF None Seen HPF (None Seen); RBC/HPF 0-3 HPF (0-3); Squamous Epithelial None Seen HPF (0-3); WBC/HPF None Seen HPF (0-3)
== END 2022-07-02 10:41 | disposition home or self-care (01) ==
LOC: LABBT 10:40
PROVIDERS: ATTEND Urology
DX: Z01.818 Encounter for other preprocedural examination (principal); N42.31 Prostatic intraepithelial neoplasia; N20.0 Calculus of kidney
CPT/HCPCS: 80048; 81001; 85027; 85610; 85730; 87086; 93005; 93010

== ENCOUNTER 2022-07-16 05:51 | Day surgery (SDC) | payer OTHER ==
[2022-07-15 12:50] VITALS: BMI 22.4
[2022-07-16] MEDS ORDERED: Phenylephrine 10 MG/ML VIAL ONE (06:15)
[2022-07-16] MEDS ORDERED: Dexmedetomidine 200 MCG/2 ML VIAL ONE (06:15)
[2022-07-16] MEDS ORDERED: fentaNYL PF 100 MCG/2 ML SYRINGE ONE (06:15)
[2022-07-16] MEDS ORDERED: Lidocaine 1% PF 5 ML VIAL ONE (06:57)
[2022-07-16] MEDS ORDERED: cefTRIAXone\\ROCEPHIN 1 GM VIAL ONE (07:41)
[2022-07-16] MEDS ORDERED: Sodium Chloride 0.9% 100 ML ONE (07:42)
[2022-07-16] MEDS ORDERED: Ketorolac Tromethamine 30 MG/ML VIAL ONE (07:52)
[2022-07-16] MEDS ORDERED: Dexamethasone 20 MG/5 ML VIAL ONE (07:52)
[2022-07-16] MEDS ORDERED: PROPOFOL 200 MG/20 ML VIAL ONE (07:52)
[2022-07-16] MEDS ORDERED: Ondansetron PF 4 MG/2 ML Vial ONE (07:52)
[2022-07-16] MEDS ORDERED: HYDROcodone/Acetaminophen 5/325 mg Tablet ONE (08:50)
== END 2022-07-16 09:36 | disposition home or self-care (01) ==
LOC: SDC 05:51
PROVIDERS: ATTEND Urology
PROC: 0VB03ZX Excision of Prostate, Percutaneous Approach, Diagnostic (ICD-10-PCS; principal; 2022-07-16)
DX: C61 Malignant neoplasm of prostate (principal); N42.31 Prostatic intraepithelial neoplasia; I10 Essential (primary) hypertension; E78.5 Hyperlipidemia, unspecified; Z79.890 Hormone replacement therapy; Z79.899 Other long term (current) drug therapy
CPT/HCPCS: 88341; 88342; G0416; J0696; J1100; J1885; J2370; J2405; J2704; J3490

== ENCOUNTER 2022-07-17 10:24 | Observation (INO) | payer OTHER ==
[2022-07-17 11:12] LABS: #Lymphocytes 0.4 thou/uL (1.20-3.40); #Monocytes 0.2 thou/uL (0.11-0.59); #Neutrophils 7.3 thou/uL (1.40-6.50); %Eosinophils 0.2 % (0.0-10.0); %Lymphocytes 5.2 % (21.0-51.0); %Monocytes 2.7 % (0.0-10.0); %Neutrophils 91.8 % (42.0-75.0); Hemoglobin 15.4 g/dL (14.0-18.0); Mean Corpuscular HGB CONC 34.8 g/dL (32.0-36.0); Mean Corpuscular Hemoglobin 32.2 pg (27.0-31.0); Mean Corpuscular Volume 92.6 fl (78.0-98.0); Mean Platelet Volume 7.6 fL (7.4-10.4); Platelet Count 154 10x3/uL (130-400); RBC Distribution Width 11.6 % (11.5-14.5); Red Blood Cell (RBC) Count 4.78 mill/uL (4.70-6.10); White Blood Cell (WBC) Count 7.9 10x3/uL (4.8-10.8)
[2022-07-17 11:35] LABS: ALT (SGPT) 16 U/L (8-55); AST (SGOT) 24 U/L (5-34); Albumin 3.9 g/dL (3.4-4.8); Alkaline Phosphatase 86 U/L (40-110); Anion Gap 15 mmol/L (10-20); BUN (Urea Nitrogen) 17 mg/dL (8.4-25.7); Bilirubin, Total 1.6 mg/dL (0.2-1.2); Calc. Creatinine Clearance 0 mL/min (70-130); Carbon Dioxide 22 mmol/L (23-31); Chloride 105 mmol/L (98-107); Estimated GFR 86; Globulin 2.5 g/dL (2.4-3.5); Glucose 93 mg/dL (83-110); Potassium 3.9 mmol/L (3.5-5.1); Protein, Total 6.4 g/dL (5.8-8.1); Sodium 138 mmol/L (136-145)
[2022-07-17] MEDS ORDERED: Piperacillin/Tazobactam 4.5 GM VIAL ONE (11:40)
[2022-07-17 11:50] LABS: Bacteria/HPF 4+ HPF (None Seen); Bilirubin Negative (Negative); Blood, Urine 3+ (Negative); Clarity Turbid (Clear); Glucose, Urine (Dipstick) Normal (Negative); Ketone, Urine 10 mg/dL (Negative); Leukocyte 500 Leu/uL (Negative); Nitrite 2+ (Negative); Protein, Urine (Dipstick) 20 mg/dL (Neg-Trace); RBC/HPF Greater than 50 HPF (0-3); Specific Gravity, Urine 1.022 (1.002-1.036); Squamous Epithelial None Seen HPF (0-3); Urobilinogen Normal mg/dL (Less than 2); WBC/HPF Greater than 50 HPF (0-3); pH, Urine 6.5 (5.0-9.0)
[2022-07-17] MEDS ORDERED: Acetaminophen 325 MG TAB PO PRN (12:59)
[2022-07-17 14:40] VITALS: BMI 22.4
[2022-07-17] MEDS: Piperacillin/Tazobactam 3.375 GM in Sodium Chloride 0.9% 100 ML IVPB SCH ×2 (16:12→23:32)
[2022-07-17] MEDS ORDERED: Atorvastatin Calcium 40 MG TAB PO SCH (21:00)
[2022-07-18 04:31] VITALS: TEMP 98.8
[2022-07-18] MEDS ORDERED: Levothyroxine Sodium 50 MCG TAB PO SCH (06:00)
[2022-07-18 06:18] LABS: #Lymphocytes 0.9 thou/uL (1.20-3.40); #Monocytes 0.5 thou/uL (0.11-0.59); #Neutrophils 3.8 thou/uL (1.40-6.50); %Basophils 0.3 % (0.0-1.0); %Eosinophils 0.6 % (0.0-10.0); %Lymphocytes 16.8 % (21.0-51.0); %Monocytes 9.8 % (0.0-10.0); %Neutrophils 72.5 % (42.0-75.0); Hemoglobin 13.6 g/dL (14.0-18.0); Mean Corpuscular HGB CONC 34.3 g/dL (32.0-36.0); Mean Corpuscular Hemoglobin 32.1 pg (27.0-31.0); Mean Corpuscular Volume 93.6 fl (78.0-98.0); Mean Platelet Volume 7.6 fL (7.4-10.4); Platelet Count 147 10x3/uL (130-400); RBC Distribution Width 11.6 % (11.5-14.5); Red Blood Cell (RBC) Count 4.24 mill/uL (4.70-6.10); White Blood Cell (WBC) Count 5.3 10x3/uL (4.8-10.8)
[2022-07-18 06:30] LABS: Anion Gap 9 mmol/L (10-20); BUN (Urea Nitrogen) 17 mg/dL (8.4-25.7); Calc. Creatinine Clearance 62 mL/min (70-130); Calcium 8.4 mg/dL (7.8-10.44); Carbon Dioxide 25 mmol/L (23-31); Chloride 107 mmol/L (98-107); Estimated GFR 65; Glucose 96 mg/dL (83-110); Potassium 3.7 mmol/L (3.5-5.1); Sodium 137 mmol/L (136-145)
[2022-07-18] MEDS: Piperacillin/Tazobactam 3.375 GM in Sodium Chloride 0.9% 100 ML IVPB SCH (08:14)
[2022-07-18] MEDS ORDERED: Amlodipine 5 MG TAB PO SCH (09:00)
[2022-07-18] MEDS ORDERED: Fish Oil 1,000 MG CAP PO SCH (09:00)
[2022-07-18 12:51] VITALS: BP 123/60
== END 2022-07-18 13:17 | disposition home or self-care (01) ==
LOC: ERS 10:24 → INTOOBSV 12:13 → SURG A 12:13
PROVIDERS: ADMIT Family Medicine; ATTEND Family Medicine
DX: N39.0 Urinary tract infection, site not specified (principal); I10 Essential (primary) hypertension; E78.00 Pure hypercholesterolemia, unspecified; E03.9 Hypothyroidism, unspecified; K91.841 Postprocedural hemorrhage of a digestive system organ or structure following other procedure; R97.20 Elevated prostate specific antigen [PSA]; Z79.890 Hormone replacement therapy; Z79.899 Other long term (current) drug therapy
CPT/HCPCS: 80048; 80053; 83605; 85025 ×2; 87040; 87077; 87086; 87186; 96365; 99284; G0378; 36415; 81003; 81015; J2543; J3490

== ENCOUNTER 2023-07-08 07:39 | Outpatient (CLI) | payer OTHER ==
[2023-07-08 09:15] LABS: #Basophils 0.1 10x3/uL (0.0-0.2); #Eosinphils 0.4 10x3/uL (0.0-0.5); #Monocytes 0.6 10x3/uL (0.0-1.1); #Neutrophils 3.4 10x3/uL (1.5-8.4); %Basophils 1.1 % (0.0-2.0); %Eosinophils 6.2 % (0.0-6.0); %Lymphocytes 28.9 % (18.0-47.0); %Monocytes 8.9 % (0.0-10.0); %Neutrophils 54.6 % (40.0-75.0); Hematocrit 41.2 % (38.8-50.0); Hemoglobin 14.7 g/dL (13.5-17.5); Mean Corpuscular HGB CONC 35.7 g/dL (32.0-36.0); Mean Corpuscular Hemoglobin 32.2 pg (27.0-33.0); Mean Corpuscular Volume 90.4 fl (81.2-95.1); Mean Platelet Volume 10.3 fl (7.4-10.4); Platelet Count 235 10x3/uL (150-450); RBC Distribution Width 12.5 % (11.5-14.5); Red Blood Cell (RBC) Count 4.56 10x6/uL (4.32-5.72); White Blood Cell (WBC) Count 6.3 10x3/uL (3.5-10.5)
[2023-07-08 09:31] LABS: ALT (SGPT) 15 U/L (8-55); AST (SGOT) 18 U/L (5-34); Albumin 4.3 g/dL (3.4-4.8); Alkaline Phosphatase 78 U/L (40-110); Anion Gap 13 mmol/L (10-20); BUN (Urea Nitrogen) 18 mg/dL (8.4-25.7); Bilirubin, Total 0.5 mg/dL (0.2-1.2); Calc. Creatinine Clearance 0 mL/min (70-130); Calcium 9.3 mg/dL (7.8-10.44); Carbon Dioxide 27 mmol/L (23-31); Chloride 106 mmol/L (98-107); Estimated GFR 68; Glucose 84 mg/dL (83-110); Potassium 4.4 mmol/L (3.5-5.1); Protein, Total 6.3 g/dL (5.8-8.1); Sodium 142 mmol/L (136-145)
== END 2023-07-08 07:40 | disposition home or self-care (01) ==
LOC: LABBT 07:39
PROVIDERS: ATTEND Internal Medicine Cardiovascular Disease
DX: Z01.812 Encounter for preprocedural laboratory examination (principal)
CPT/HCPCS: 80053; 85025

== ENCOUNTER 2023-07-12 05:57 | Day surgery (SDC) | payer OTHER ==
[2023-07-08 08:14] VITALS: BMI 21.7
[2023-07-12] MEDS ORDERED: fentaNYL 50 mcg/mL 1 mL Vial ONE (06:33)
[2023-07-12] MEDS ORDERED: Nitroglycerin 50 MG/250 ML BOT 0 ML ONE (06:34)
[2023-07-12] MEDS ORDERED: Heparin 10,000 UNITS/ 10 ML VIAL ONE (06:35)
[2023-07-12] MEDS ORDERED: Midazolam HCl 2 mg/2 ml Vial ONE (06:35)
== END 2023-07-12 12:20 | disposition home or self-care (01) ==
LOC: SDC 05:57
PROVIDERS: ATTEND Internal Medicine Cardiovascular Disease
PROC: 4A023N7 Measurement of Cardiac Sampling and Pressure, Left Heart, Percutaneous Approach (ICD-10-PCS; principal; 2023-07-12)
DX: R94.39 Abnormal result of other cardiovascular function study (principal); R07.9 Chest pain, unspecified; I10 Essential (primary) hypertension; R00.1 Bradycardia, unspecified; E78.00 Pure hypercholesterolemia, unspecified; E03.9 Hypothyroidism, unspecified; E78.5 Hyperlipidemia, unspecified; Z79.899 Other long term (current) drug therapy; Z79.890 Hormone replacement therapy; Z98.890 Other specified postprocedural states
CPT/HCPCS: 93005; 93458; C1769; C1894; J3010; 99152; 99153; J1644; J2250

== ENCOUNTER 2024-04-26 11:37 | Outpatient (CLI) | payer OTHER ==
[2024-04-26 13:49] LABS: #Basophils 0.07 10x3/uL (0.0-0.2); %Eosinophils 3.7 % (0.0-10.0); %Lymphocytes 22.5 % (21.0-51.0); %Monocytes 7.7 % (0.0-10.0); %Neutrophils 64.7 % (42.0-75.0); Hematocrit 41.8 % (42.0-52.0); Hemoglobin 14.6 g/dL (14.0-18.0); Mean Corpuscular HGB CONC 34.9 g/dL (32.0-36.0); Mean Corpuscular Hemoglobin 31.9 pg (27.0-31.0); Mean Corpuscular Volume 91.3 fL (78.0-98.0); Mean Platelet Volume 10.1 fL (7.4-10.4); Platelet Count 207 10x3/uL (130-400); RBC Distribution Width 12.4 % (11.5-14.5); Red Blood Cell (RBC) Count 4.58 mill/uL (4.70-6.10)
[2024-04-26 13:54] LABS: Bacteria/HPF None Seen HPF (None Seen); Bilirubin Negative (Negative); Blood, Urine Negative (Negative); Clarity Clear (Clear); Glucose, Urine (Dipstick) Normal (Negative); Ketone, Urine Negative (Negative); Leukocyte Negative Leu/uL (Negative); Nitrite Negative (Negative); Protein, Urine (Dipstick) Negative (Neg-Trace); RBC/HPF 0-3 HPF (0-3); Specific Gravity, Urine 1.016 (1.002-1.036); Squamous Epithelial None Seen HPF (0-3); Urobilinogen Normal mg/dL (Less than 2); WBC/HPF 0-3 HPF (0-3); pH, Urine 6.5 (5.0-9.0)
[2024-04-26 14:10] LABS: INR-International Normal Ratio 1.1; PTT 39.8 sec (22.9-36.1); Prothrombin Time 13.8 sec (12.0-14.7)
[2024-04-26 14:13] LABS: ALT (SGPT) 14 U/L (8-55); AST (SGOT) 18 U/L (5-34); Albumin 3.8 g/dL (3.4-4.8); Alkaline Phosphatase 66 U/L (40-110); Anion Gap 12 mmol/L (10-20); BUN (Urea Nitrogen) 25 mg/dL (8.4-25.7); Bilirubin, Total 0.7 mg/dL (0.2-1.2); Calc. Creatinine Clearance 0 mL/min (70-130); Calcium 9.2 mg/dL (7.8-10.44); Carbon Dioxide 27 mmol/L (23-31); Chloride 103 mmol/L (98-107); Estimated GFR 83; Globulin 2.6 g/dL (2.4-3.5); Glucose 97 mg/dL (83-110); Potassium 4.2 mmol/L (3.5-5.1); Protein, Total 6.4 g/dL (5.8-8.1); Sodium 138 mmol/L (136-145)
== END 2024-04-26 11:38 | disposition home or self-care (01) ==
LOC: LABBT 11:37
PROVIDERS: ATTEND Urology
DX: Z01.818 Encounter for other preprocedural examination (principal); C61 Malignant neoplasm of prostate; R97.20 Elevated prostate specific antigen [PSA]; N42.31 Prostatic intraepithelial neoplasia
CPT/HCPCS: 80053; 81001; 85025; 85610; 85730; 87086; 93005; 93010

== ENCOUNTER 2024-05-10 06:22 | Observation (INO) | payer OTHER ==
[2024-04-26 12:04] VITALS: BMI 22.4
[2024-05-10] MEDS ORDERED: Lidocaine 2% PF 5 ML VIAL ONE (06:58)
[2024-05-10] MEDS ORDERED: Rocuronium Bromide 10 MG/ML (10ML VIAL) ONE ×3 (06:58→10:28)
[2024-05-10] MEDS ORDERED: PROPOFOL 20 ML ONE (06:59)
[2024-05-10] MEDS ORDERED: Midazolam HCl 2 mg/2 ml Vial ONE (06:59)
[2024-05-10] MEDS ORDERED: fentaNYL PF 100 MCG/2 ML SYRINGE ONE ×2 (06:59→10:51)
[2024-05-10] MEDS ORDERED: cefOXitin 2 GM VIAL ONE (07:16)
[2024-05-10] MEDS ORDERED: Sodium Chloride 0.9% 100 ML ONE (07:16)
[2024-05-10] MEDS ORDERED: ceFOXitin 1 GM VIAL ONE ×3 (07:19→11:57)
[2024-05-10] MEDS ORDERED: Ketamine In 0.9 % NaCl 50 MG/5 ML SYRINGE ONE (07:50)
[2024-05-10] MEDS ORDERED: Lidocaine 2% 6 ML (Jelly) SYR ONE (08:19)
[2024-05-10] MEDS ORDERED: Glycopyrrolate 0.2 MG/ML 5 ML SYRINGE ONE (08:19)
[2024-05-10] MEDS ORDERED: PHENYLEPHRINE-NS 100 MCG/ML 10 ML SYRINGE ONE (08:19)
[2024-05-10] MEDS ORDERED: SUGAMMADEX SODIUM 200 MG/2 ML VIAL ONE (08:25)
[2024-05-10] MEDS ORDERED: Ketorolac Tromethamine 30 MG (1 mL) VIAL ONE (08:26)
[2024-05-10] MEDS ORDERED: Dexamethasone 4 mg/ml Vial ONE (08:26)
[2024-05-10] MEDS ORDERED: Ondansetron PF 4 MG/2 ML Vial ONE (08:26)
[2024-05-10] MEDS ORDERED: ePHEDrine Sulfate 50 MG/10 ML VIAL ONE (08:37)
[2024-05-10] MEDS ORDERED: Ondansetron HCl/PF 4 MG/2 ML Vial IVP PRN (08:52)
[2024-05-10] MEDS ORDERED: Promethazine HCl 25 MG/ML VIAL IM PRN (08:52)
[2024-05-10] MEDS ORDERED: HYDROmorphone 2 MG/ML VIAL SLOW IVP PRN (08:52)
[2024-05-10] MEDS ORDERED: Bupivacaine 0.25% HCL 30 ML VIAL ONE (12:12)
[2024-05-10] MEDS ORDERED: diphenhydrAMINE 25 MG CAP PO PRN (13:32)
[2024-05-10] MEDS ORDERED: Hyoscyamine SL 0.125 MG TAB SL PRN (13:32)
[2024-05-10] MEDS ORDERED: Ondansetron PF 4 MG/2 ML Vial IVP PRN (13:32)
[2024-05-10] MEDS ORDERED: Oxybutynin 5 MG TAB PO PRN (13:32)
[2024-05-10] MEDS ORDERED: Mag-Al 1200 mg/1200 mg/30 ML UDCUP PO PRN (13:32)
[2024-05-10] MEDS ORDERED: hydrALAZINE 20 MG/ML VIAL SLOW IVP PRN (13:32)
[2024-05-10] MEDS ORDERED: oxyCODONE 5 MG TAB PO PRN ×2 (13:34)
[2024-05-10] MEDS ORDERED: fentaNYL 50 mcg/mL 1 mL Vial SLOW IVP PRN (13:34)
[2024-05-10] MEDS: traMADol HCl 50 MG TAB PO SCH (14:00)
[2024-05-10] MEDS: Acetaminophen 500 MG TAB PO SCH (14:00)
[2024-05-10] MEDS: Sodium Chloride 0.9% 1,000 ML IV SCH (14:05)
[2024-05-10 14:23] LABS: Hematocrit 38.9 % (42.0-52.0); Hemoglobin 13.7 g/dL (14.0-18.0); Mean Corpuscular HGB CONC 35.2 g/dL (32.0-36.0); Mean Corpuscular Hemoglobin 31.9 pg (27.0-31.0); Mean Corpuscular Volume 90.5 fL (78.0-98.0); Mean Platelet Volume 9.8 fL (7.4-10.4); Platelet Count 173 10x3/uL (130-400); RBC Distribution Width 12.1 % (11.5-14.5)
[2024-05-10 14:52] LABS: Anion Gap 14 mmol/L (10-20); BUN (Urea Nitrogen) 26 mg/dL (8.4-25.7); Calc. Creatinine Clearance 64 mL/min (70-130); Calcium 8.4 mg/dL (7.8-10.44); Carbon Dioxide 20 mmol/L (23-31); Chloride 108 mmol/L (98-107); Estimated GFR 69; Glucose 187 mg/dL (83-110); Potassium 3.6 mmol/L (3.5-5.1); Sodium 138 mmol/L (136-145)
[2024-05-10] MEDS: cefOXitin Sodium 1 GM in Sodium Chloride 0.9% 100 ML IVPB SCH ×2 (18:17→20:33)
[2024-05-10] MEDS: Ezetimibe 10 MG TAB PO SCH (20:29)
[2024-05-10] MEDS: Amlodipine 5 MG TAB PO SCH (20:29)
[2024-05-10] MEDS: CeleCOXIB 100 MG CAP PO SCH (20:30)
[2024-05-10] MEDS: Rosuvastatin 20 MG TAB PO SCH (20:31)
[2024-05-10] MEDS: Docusate 100 MG CAP PO SCH (20:31)
[2024-05-11] MEDS: Levothyroxine Sodium 50 MCG TAB PO SCH (05:12)
[2024-05-11 05:14] LABS: #Basophils Less than 0.03 10x3/uL (0.0-0.2); #Eosinophils Less than 0.03 10x3/uL (0.0-0.7); %Basophils 0.1 % (0.0-1.0); %Eosinophils 0.1 % (0.0-10.0); %Lymphocytes 13.5 % (21.0-51.0); %Neutrophils 76.9 % (42.0-75.0); Hematocrit 34.3 % (42.0-52.0); Hemoglobin 12.2 g/dL (14.0-18.0); Mean Corpuscular HGB CONC 35.6 g/dL (32.0-36.0); Mean Platelet Volume 9.8 fL (7.4-10.4); Platelet Count 170 10x3/uL (130-400); RBC Distribution Width 12.4 % (11.5-14.5); Red Blood Cell (RBC) Count 3.81 mill/uL (4.70-6.10)
[2024-05-11 05:20] LABS: Anion Gap 10 mmol/L (10-20); BUN (Urea Nitrogen) 21 mg/dL (8.4-25.7); Calc. Creatinine Clearance 64 mL/min (70-130); Calcium 8.2 mg/dL (7.8-10.44); Carbon Dioxide 24 mmol/L (23-31); Chloride 106 mmol/L (98-107); Estimated GFR 69; Glucose 96 mg/dL (83-110); Potassium 4.2 mmol/L (3.5-5.1); Sodium 136 mmol/L (136-145)
[2024-05-11] MEDS: Lisinopril 5 MG TAB PO SCH (08:39)
[2024-05-11 12:23] VITALS: BP 125/51; TEMP 97.8
== END 2024-05-11 14:37 | disposition home or self-care (01) ==
LOC: SDC 06:22 → EDSTATUS 11:30 → SURG A 13:32
PROVIDERS: ADMIT Urology; ATTEND Urology
PROC: 0VT04ZZ Resection of Prostate, Percutaneous Endoscopic Approach (ICD-10-PCS; principal; 2024-05-10)
PROC: 07TC4ZZ Resection of Pelvis Lymphatic, Percutaneous Endoscopic Approach (ICD-10-PCS; 2024-05-10)
PROC: 0VB04ZZ Excision of Prostate, Percutaneous Endoscopic Approach (ICD-10-PCS; 2024-05-10)
PROC: 07TC4ZZ Resection of Pelvis Lymphatic, Percutaneous Endoscopic Approach (ICD-10-PCS; 2024-05-10)
DX: C61 Malignant neoplasm of prostate (principal); R97.20 Elevated prostate specific antigen [PSA]; N42.31 Prostatic intraepithelial neoplasia; N20.0 Calculus of kidney; I10 Essential (primary) hypertension; E78.5 Hyperlipidemia, unspecified; E07.9 Disorder of thyroid, unspecified; N40.0 Benign prostatic hyperplasia without lower urinary tract symptoms; Z79.890 Hormone replacement therapy; Z79.899 Other long term (current) drug therapy; Z96.651 Presence of right artificial knee joint; Z98.49 Cataract extraction status, unspecified eye
CPT/HCPCS: 38571; 55866; 80048 ×2; 85025; 85027; 86850 ×2; 86900 ×2; 86901 ×2; 86920; A4333; C1713 ×2; C1776 ×2; C1889; C2613; J0665; J0694 ×2; J1100; J1885; J2250; J2405; J2704; J3490; S2900; 36415; 88309; 88342

== ENCOUNTER 2024-05-21 08:48 | Outpatient (CLI) | payer OTHER ==
[2024-05-21] MEDS ORDERED: Iopamidol-370 76% 500 ML BOT (X-RAY USE) FS ONE (08:55)
== END 2024-05-21 08:49 | disposition home or self-care (01) ==
LOC: RAD 08:48
PROVIDERS: ATTEND Urology
DX: C61 Malignant neoplasm of prostate (principal)
CPT/HCPCS: 51600; 74430